=== PATIENT | female | born 1965 ===

== ENCOUNTER 2022-01-05 14:02 | Emergency (ER) | payer MEDICAID ==
[2022-01-05] MEDS ORDERED: Sodium Chloride 0.9% 1,000 ML IV ONE (14:07)
[2022-01-05 15:17] LABS: HEMOGLOBIN A1C 6.1 %
[2022-01-05 15:34] LABS: CARBON DIOXIDE,CO2 27.4 mmol/L (21.0-32.0); POTASSIUM,K 4.2 mmol/L (3.5-5.1)
[2022-01-05 15:40] VITALS: BP 151/85; PULSE 92
== END 2022-01-05 15:40 | disposition home or self-care (01) ==
LOC: MW.ED 14:02
DX: R55 Syncope and collapse (principal); J44.9 Chronic obstructive pulmonary disease, unspecified; F41.9 Anxiety disorder, unspecified; F32.A Depression, unspecified; Z88.5 Allergy status to narcotic agent; Z88.0 Allergy status to penicillin; Z88.7 Allergy status to serum and vaccine; Z88.8 Allergy status to other drugs, medicaments and biological substances; Z79.899 Other long term (current) drug therapy
CPT/HCPCS: 36415; 80053; 83036; 84484; 85025; 93005; 99284

== ENCOUNTER 2023-09-01 16:24 | Emergency (ER) | payer MEDICAID ==
[2023-09-01] MEDS: Sodium Chloride 0.9% 1,000 ML IV ONE (16:47)
[2023-09-01] MEDS: Acetaminophen 500 MG Tab PO ONE (16:47)
[2023-09-01 17:14] LABS: BASOPHILS ABSOLUTE AUTO 0.07 K/uL (0.00-0.20); BASOPHILS PERCENT AUTO 0.9 % (0.0-1.0); EOSINOPHILS ABSOLUTE AUTO 0.16 K/uL (0.00-0.45); HEMOGLOBIN 13.1 g/dL (12.0-16.0); IMMATURE GRAN ABSOLUTE AUTO 0.04 K/uL (0.00-0.05); IMMATURE GRAN PERCENT AUTO 0.5 % (0.0-0.4); LYMPHOCYTES ABSOLUTE AUTO 2.54 K/uL (1.00-4.80); MEAN CORPUSCULAR HEMOGLOBIN 30.5 pg (28.0-32.0); MEAN CORPUSCULAR HGB CONC 33.6 g/dL (32.0-36.0); MEAN CORPUSCULAR VOLUME 90.9 fL (83.0-99.0); MEAN PLATELET VOLUME 12.4 fL (9.4-12.3); MONOCYTES ABSOLUTE AUTO 0.62 K/uL (0.00-0.80); MONOCYTES PERCENT AUTO 7.8 % (0.0-8.0); NEUTROPHILS ABSOLUTE AUTO 4.51 K/uL (1.80-7.70); NEUTROPHILS PERCENT AUTO 56.8 % (41.0-71.0); PLATELET COUNT,PLT 210 K/uL (150-400); RED BLOOD CELL COUNT 4.29 M/uL (4.10-5.30); WHITE BLOOD CELL COUNT,WBC 7.94 K/uL (3.9-11.3)
[2023-09-01 17:31] LABS: LACTIC ACID 2.2 mmol/L (0.4-2.0)
[2023-09-01 17:38] LABS: A/G RATIO 1.1 (0.9-1.6); ALANINE AMINOTRANSFERASE,ALT 29 IU/L (14-63); ALBUMIN 3.3 g/dL (3.4-5.0); ALKALINE PHOSPHATASE 140 U/L (46-116); ASPARTATE AMNIOTRANSFERASE,AST 37 IU/L (15-37); BILIRUBIN TOTAL 0.1 mg/dL (0.2-1.0); BLOOD UREA NITROGEN,BUN 16 mg/dL (7.0-18.0); CALCIUM 8.8 mg/dL (8.5-10.1); CARBON DIOXIDE,CO2 22.4 mmol/L (21.0-32.0); CHLORIDE,CL 105 mmol/L (98-107); CREATININE 0.9 mg/dL (0.6-1.0); ETHANOL BLOOD MEDICAL <3 mg/dL; GLUCOSE RANDOM 107 mg/dL (74-106); MAGNESIUM 1.8 mg/dL (1.8-2.4); POTASSIUM,K 4.4 mmol/L (3.5-5.1); PROTEIN TOTAL,TP 6.4 g/dL (6.4-8.2); SODIUM,NA 139 mmol/L (136-145); TSH ULTRASENSITIVE 2.42 uIU/mL (0.36-3.74)
[2023-09-01 17:39] LABS: ESTIMATED GFR 75 mL/min (>60)
[2023-09-01 17:52] VITALS: PULSE 65
[2023-09-01 18:34] LABS: AMPHETAMINES SCREEN, URINE NEGATIVE (CUTOFF=500); BARBITURATE SCREEN,URINE NEGATIVE (CUTOFF=200); BENZODIAZEPINES SCREEN,URINE NEGATIVE (CUTOFF=150); BUPRENORPHINE SCREEN,URINE NEGATIVE (CUTOFF=10); METHADONE SCREEN, URINE NEGATIVE (CUTOFF=200); METHAMPHETAMINES SCREEN, URINE NEGATIVE (CUTOFF=500); OXYCODONE SCREEN,URINE NEGATIVE (CUT0FF=100); PCP SCREEN,URINE NEGATIVE (CUTOFF=25); THC SCREEN,URINE 20 NG/ML NEGATIVE (CUTOFF=50)
[2023-09-01 19:23] LABS: APPEARANCE,URINE CLEAR; BILIRUBIN,URINE NEGATIVE (NEGATIVE); COLOR,URINE YELLOW; GLUCOSE,URINE NEGATIVE (NEGATIVE); KETONES,URINE NEGATIVE (NEGATIVE); LEUKOCYTE ESTERASE,URINE NEGATIVE (NEGATIVE); NITRITE,URINE NEGATIVE (NEGATIVE); OCCULT BLOOD,URINE NEGATIVE (NEGATIVE); PH,URINE 5.5 (5.0-8.0); PROTEIN,URINE TRACE mg/dL (NEGATIVE); UROBILINOGEN,URINE 0.2 EU/dL (<2.0)
[2023-09-01 19:34] LABS: BACTERIA,URINE FEW (NEGATIVE); EPITHELIAL CELLS,URINE FEW (NONE-FEW); MUCUS,URINE FEW (NONE-MOD); RBC,URINE 0-1 (0-2/HPF); WBC,URINE 0-3 (0-5/HPF)
[2023-09-01 20:44] VITALS: BP 146/103
== END 2023-09-01 20:51 | disposition home or self-care (01) ==
LOC: MW.ED 16:24
DX: R56.9 Unspecified convulsions (principal); J44.89 Other specified chronic obstructive pulmonary disease; Z75.8 Other problems related to medical facilities and other health care; Z79.899 Other long term (current) drug therapy; Z79.51 Long term (current) use of inhaled steroids
CPT/HCPCS: 36415; 70450; 71045; 72125; 80053; 80305; 80307; 81001; 82947; 83605; 83735; 84443; 84484; 85025; 93005; 96361; 96374; 99285; A9270; J1953; J7030; J7060; 93010; 99283

== ENCOUNTER 2024-07-15 16:16 | Emergency (ER) | payer MEDICAID, OTHER ==
[2024-07-15 16:39] VITALS: BP 147/110; PULSE 83
[2024-07-15] MEDS: Ibuprofen 600 MG Tab PO ONE (17:57)
[2024-07-15] MEDS: Acetaminophen 500 MG Tab PO ONE (17:57)
== END 2024-07-15 19:16 | disposition home or self-care (01) ==
LOC: MW.ED 16:16
DX: M79.674 Pain in right toe(s) (principal); J44.89 Other specified chronic obstructive pulmonary disease; Z75.8 Other problems related to medical facilities and other health care; Z88.6 Allergy status to analgesic agent; Z91.040 Latex allergy status; Z88.0 Allergy status to penicillin; Z88.7 Allergy status to serum and vaccine; Z91.02 Food additives allergy status; Z79.899 Other long term (current) drug therapy; Z79.51 Long term (current) use of inhaled steroids
CPT/HCPCS: 73660; 99283; A9270